=== PATIENT | female | born 1945 | race Two or more races ===

== ENCOUNTER 2021-04-26 09:21 | Outpatient (REF) | payer MEDICARE, SELFPAY ==
[2021-04-26 10:30] LABS: COVID-19 Test Negative (Negative); IDNOW Serial# 16C4AD1C
== END 2021-04-26 09:22 | disposition home or self-care (01) ==
LOC: HO.LAB 09:21
PROVIDERS: Visit Provider Internal Medicine
DX: Z20.822 Contact with and (suspected) exposure to COVID-19 (principal)
CPT/HCPCS: 36415; 87635; C9803